=== PATIENT | female | born 1950 | race Caucasian/White ===

== ENCOUNTER 2017-01-07 09:16 | Day surgery (SDC) | payer BC, MEDICARE ==
--- NOTE | ~2017-01-07 | EGD ---
EGD REPORT [facility] [address] [place] [id number] NAME: SHANNA PALOMARES : 52 STATUS : REG [facility]#: [id number] AGE: 66 ADM/REG DATE : 01/07/17 MR#: [id number] REPORT SERV DATE: 01/07/17 DICTATED BY: MYNOR ROSAS DATE: 01/07/17 REPORT STATUS : Draft TRANSCRIBED BY: [employer] DATE: 01/07/17 [facility] Patient Name: Shanna Palomares Date of : 1950 Attending MD: MYNOR ROSAS MD Procedure Date No Time: 01/07/2017 Procedure: Colonoscopy Indications: Screening for colorectal malignant neoplasm Referring MD: RALPH RIOS Medicines: as per anesthesia Complications: No immediate complications. Procedure: Pre-Anesthesia Assessment: - ASA Grade Assessment: II - A patient with mild systemic disease. After I obtained informed consent, the scope was passed under direct vision. Throughout the procedure, the patient's blood pressure, pulse, and oxygen saturations were monitored continuously. The PCF [id number] was introduced through the anus and advanced to the cecum, identified by appendiceal orifice and ileocecal valve. The colonoscopy was performed without difficulty. The patient tolerated the procedure. The quality of the bowel preparation was adequate to identify polyps. Findings: The perianal and digital rectal examinations were normal. Multiple small and large-mouthed diverticula were found in the sigmoid colon, in the descending colon, in the transverse colon and in the ascending colon. Internal hemorrhoids were found during endoscopy and were mild. Impression: - Diverticulosis in the sigmoid colon, in the descending colon, in the transverse colon and in the ascending colon. - Internal hemorrhoids. Recommendation: - Repeat colonoscopy in 10 years for surveillance. Procedure Code(s): --- Professional --- 96124, Colonoscopy, flexible, proximal to splenic flexure; diagnostic, with or without collection of specimen(s) by brushing or washing, with or without colon decompression (separate procedure) Diagnosis Code(s): --- Professional --- EGD REPORT [address] [place]. [address] NAME: SHANNA PALOMARES : [birth year] STATUS : REG [facility]#: [id number] AGE: 66 ADM/REG DATE : 01/07/17 MR#: [id number] REPORT SERV DATE: 01/07/17 DICTATED BY: MYNOR ROSAS. DATE: 01/07/17 REPORT STATUS : Draft TRANSCRIBED BY: [employer] DATE: 01/07/17 K64.8, Other hemorrhoids K57.30, Diverticulosis of large intestine without perforation or abscess without bleeding Z12.11, Encounter for screening for malignant neoplasm of colon CPT copyright 2013 [employer]. All rights reserved. The codes documented in this report are preliminary and upon bell neck hammerer review may be revised to meet current compliance requirements. MYNOR ROSAS MD 01/07/2017 11:39 AM This report has been signed electronically. Number of Addenda: 0 Note Initiated On: 01/07/2017 11:03 AM Scope Withdrawal Time 0 hours 8 minutes 57 [address] [place], [place] [address] [address]
[~2017-01-07 09:16] MED LIST: CENTRUM PO; HYDROCHLOROT25 MG PO; LEVOTHYROXIN100 MCG PO; MIRALAX POWDER1 PKT PO; VITAMIN B-121000 MC1 SL; VITAMIN D31000 UNIT PO; VITC500 PO
== END 2017-01-07 23:59 | disposition home or self-care (01) ==
LOC: DMU 09:16
PROVIDERS: Internal Medicine Gastroenterology
PROC: 0DJD8ZZ Inspection of Lower Intestinal Tract, Via Natural or Artificial Opening Endoscopic (ICD-10-PCS; principal; 2017-01-07 10:30)
DX: Z12.11 Encounter for screening for malignant neoplasm of colon (principal); K64.8 Other hemorrhoids; K57.30 Diverticulosis of large intestine without perforation or abscess without bleeding; I10 Essential (primary) hypertension; E03.9 Hypothyroidism, unspecified; Z98.890 Other specified postprocedural states; Z98.51 Tubal ligation status; Z87.891 Personal history of nicotine dependence; Z79.899 Other long term (current) drug therapy